=== PATIENT | male | born 1945 | race Caucasian/White ===

== ENCOUNTER → 2016-03-21 | Outpatient (CLI) | payer OTHER | END | disposition home or self-care (01) | LOC: PCVCIMAG 08:58 | PROVIDERS: ATTEND Internal Medicine | DX: I25.10 Atherosclerotic heart disease of native coronary artery without angina pectoris (principal); I65.23 Occlusion and stenosis of bilateral carotid arteries; E78.00 Pure hypercholesterolemia, unspecified; I10 Essential (primary) hypertension; E11.9 Type 2 diabetes mellitus without complications; J44.9 Chronic obstructive pulmonary disease, unspecified; M06.9 Rheumatoid arthritis, unspecified; F17.200 Nicotine dependence, unspecified, uncomplicated | CPT/HCPCS: 80061; 93005; 93880; G0463 ==

== ENCOUNTER → 2016-09-21 | Outpatient (CLI) | payer OTHER | END | disposition home or self-care (01) | LOC: PCVCCLINIC 11:50 | PROVIDERS: ATTEND Internal Medicine | DX: I45.10 Unspecified right bundle-branch block (principal); I25.10 Atherosclerotic heart disease of native coronary artery without angina pectoris; I10 Essential (primary) hypertension; E78.5 Hyperlipidemia, unspecified; M06.9 Rheumatoid arthritis, unspecified; I65.23 Occlusion and stenosis of bilateral carotid arteries; J43.2 Centrilobular emphysema; E11.9 Type 2 diabetes mellitus without complications; Z87.891 Personal history of nicotine dependence; Z96.652 Presence of left artificial knee joint; Z79.82 Long term (current) use of aspirin; Z79.84 Long term (current) use of oral hypoglycemic drugs; Z88.0 Allergy status to penicillin | CPT/HCPCS: 80061; 93005; G0463 ==

== ENCOUNTER → 2016-11-13 | Outpatient (CLI) | payer OTHER | END | disposition home or self-care (01) | LOC: PCVCCLINIC 11:05 | PROVIDERS: ATTEND Internal Medicine | DX: I25.10 Atherosclerotic heart disease of native coronary artery without angina pectoris (principal); I48.0 Paroxysmal atrial fibrillation; I10 Essential (primary) hypertension; I65.23 Occlusion and stenosis of bilateral carotid arteries; M06.9 Rheumatoid arthritis, unspecified; J43.1 Panlobular emphysema; R94.31 Abnormal electrocardiogram [ECG] [EKG]; I45.10 Unspecified right bundle-branch block; E78.00 Pure hypercholesterolemia, unspecified; F17.210 Nicotine dependence, cigarettes, uncomplicated; Z79.82 Long term (current) use of aspirin; Z79.899 Other long term (current) drug therapy | CPT/HCPCS: 93005; G0463 ==

== ENCOUNTER → 2017-03-26 | Outpatient (CLI) | payer OTHER | END | disposition home or self-care (01) | LOC: PCVCIMAG 11:01 | DX: I65.23 Occlusion and stenosis of bilateral carotid arteries (principal); I25.10 Atherosclerotic heart disease of native coronary artery without angina pectoris; I48.0 Paroxysmal atrial fibrillation; I10 Essential (primary) hypertension; E78.00 Pure hypercholesterolemia, unspecified; J43.1 Panlobular emphysema; M06.9 Rheumatoid arthritis, unspecified; F17.210 Nicotine dependence, cigarettes, uncomplicated; I45.10 Unspecified right bundle-branch block; R94.31 Abnormal electrocardiogram [ECG] [EKG]; Z79.899 Other long term (current) drug therapy; Z79.82 Long term (current) use of aspirin | CPT/HCPCS: 80061; 93005; 93880; G0463 ==

== ENCOUNTER → 2017-06-20 | Outpatient (CLI) | payer OTHER | END | disposition home or self-care (01) | LOC: PCVCIMAG 10:54 | DX: I73.9 Peripheral vascular disease, unspecified (principal); I77.1 Stricture of artery; L97.329 Non-pressure chronic ulcer of left ankle with unspecified severity; L97.229 Non-pressure chronic ulcer of left calf with unspecified severity | CPT/HCPCS: 93925 ==

== ENCOUNTER → 2017-09-24 | Outpatient (CLI) | payer OTHER | END | disposition home or self-care (01) | LOC: PCVCCLINIC 11:24 | DX: I25.10 Atherosclerotic heart disease of native coronary artery without angina pectoris (principal); I48.0 Paroxysmal atrial fibrillation; I65.23 Occlusion and stenosis of bilateral carotid arteries; I10 Essential (primary) hypertension; E78.00 Pure hypercholesterolemia, unspecified; J43.1 Panlobular emphysema; M06.9 Rheumatoid arthritis, unspecified; F17.210 Nicotine dependence, cigarettes, uncomplicated; Z88.0 Allergy status to penicillin; Z79.899 Other long term (current) drug therapy | CPT/HCPCS: 93005; G0463 ==

== ENCOUNTER → 2018-03-26 | Outpatient (CLI) | payer OTHER ==
--- NOTE | 2018-03-26 11:40 | PCVCIMAG ---
APPROVED REPORT Indications Stenosis Current Smoker Risk Factors Diabetes Doppler Spectral Velocity Analysis PSV / EDVPSV / EDV ECA (R) 54 / 6 cm/sECA (L) 83 / 16 cm/s dICA (R) 88 / 27 cm/sdICA (L) 71 / 26 cm/s Yumiko (R) 114 / 32 cm/smICA (L) 85 / 25 cm/s pICA (R) 90 / 27 cm/spICA (L) 89 / 28 cm/s Bulb (R) 73 / 14 cm/sBulb (L) 84 / 18 cm/s dCCA (R) 56 / 11 cm/sdCCA (L) 80 / 20 cm/s mCCA (R) 60 / 12 cm/smCCA (L) 88 / 22 cm/s Vert (R) 75 / 16 cm/sVert (L) 93 / 27 cm/s ICA/CCA 2.04ICA/CCA 1.11 Basic Measurements Blood Pressure: Pulses: Right Left RightLeft Brachial(Sitting) 124/92tbGr003/74mmHgTemporal Real Time B-Mode Imaging Vert. (R)AntegradeVert. (L)Antegrade Findings The right carotid bulb has moderate calcified plaque. The right proximal internal carotid artery shows 40-50% stenosis. The right common carotid artery shows no significant stenosis. The right external carotid artery shows no significant stenosis. The left carotid bulb has moderate calcified plaque. The left proximal internal carotid artery shows <40% stenosis. The left common carotid artery shows no significant stenosis. The left external carotid artery shows no significant stenosis. Conclusion 1. Right internal carotid artery stenosis (40-50%) 2. Left internal carotid artery stenosis (<40%) 3. Antegrade vertebral flow
--- NOTE | 2018-03-26 11:43 | PCVCIMAG ---
APPROVED REPORT Study performed: 03/26/2018 11:04:36 EXAM: Comprehensive 2D, Doppler, and color-flow Echocardiogram Patient Location: Echo lab Status: routine BSA: 2.08 HR: 75 bpmBP: 130/74 mmHg Rhythm: RBBB Other Information Study Quality: Adequate Risk Factors: Cardiac Risk Factors: HTN Indications CAD parox a fib 2D Dimensions IVSd: 12.44 (7-11mm) LVDd: 43.67 mm PWd: 12.22 (7-11mm)Ascending Ao: 34.35 (22-36mm) LVDs: 36.80 (25-40mm) Left Atrium: 32.35 (27-40mm) Aortic Root: 35.44 mm LV Single Plane 4CH: 52.46 % LV Single Plane 2CH: 56.95 % Biplane EF: 55.5 % Volumes Left Atrial Volume (Systole) Single Plane 4CH: 51.20 mLSingle Plane 2CH: 56.55 mL LA ESV Index: 30.00 mL/m2 Aortic Valve AoV Peak Brian.: 0.84 m/s AO Peak Gr.: 2.91 mmHgLVOT Max P.06 mmHg LVOT Max V: 0.72 m/s Mitral Valve E/A Ratio: 0.8 MV Decel. Time: 277.47 ms MV E Max Brian.: 0.50 m/s MV A Brian.: 0.62 m/s MV PHT: 80.46 ms IVRT: 128.03 ms Pulmonary Vein P Vein S: 0.20 m/sP Vein A: 0.29 m/s P Vein D: 0.27 m/sP Vein A Dur.: 114.2 msec P Vein S/D Ratio: 0.74 Tricuspid Valve TR Peak Brian.: 2.09 m/s TR Peak Gr.: 17.44 mmHg TV Vmax: 0.49 m/s Left Ventricle The left ventricle is normal size. There is normal LV segmental wall motion. Mild concentric left ventricular hypertrophy. Left ventricular systolic function is normal. The left ventricular ejection fraction is within the normal range. LVEF is 55%. Grade I - abnormal relaxation pattern. Right Ventricle The right ventricle is normal size. The right ventricular systolic function is normal. Atria The left atrium size is normal. The right atrium size is normal. Aortic Valve The aortic valve is mildly calcified. No aortic regurgitation is present. There is no aortic valvular stenosis. Mitral Valve The mitral valve is normal in structure. No mitral regurgitation. No evidence of mitral valve stenosis. Tricuspid Valve The tricuspid valve is normal in structure. Trace tricuspid regurgitation with PAP of 24 mmHg. Pulmonic Valve The pulmonary valve is normal in structure. There is no pulmonic valvular regurgitation. Great Vessels The aortic root is normal in size. IVC is normal in size and collapses >50% with inspiration. Pericardium There is no pericardial effusion. There is no pleural effusion. <Conclusion> Left ventricular systolic function is normal. There is normal LV segmental wall motion. LVEF is 55%. Mild diastolic dysfunction The aortic valve is mildly calcified. No aortic regurgitation or stenosis The mitral valve is normal in structure. No mitral regurgitation. Trace tricuspid regurgitation with pulmonary artery pressure of 24 mmHg. There is no pericardial effusion.
== END | disposition home or self-care (01) ==
LOC: PCVCIMAG 11:57
PROVIDERS: ATTEND Internal Medicine
DX: I65.23 Occlusion and stenosis of bilateral carotid arteries (principal); I48.0 Paroxysmal atrial fibrillation; J43.1 Panlobular emphysema; I10 Essential (primary) hypertension; M06.9 Rheumatoid arthritis, unspecified; M47.812 Spondylosis without myelopathy or radiculopathy, cervical region; E78.00 Pure hypercholesterolemia, unspecified
CPT/HCPCS: 93306; 93880

== ENCOUNTER → 2018-04-15 | Outpatient (CLI) | payer OTHER ==
[~2018-04-15] MED LIST: REGADENOSON 0.4 MG/5 ML DISP.SYRIN. IV ONE
--- NOTE | 2018-04-15 16:15 | PCVCIMAG ---
APPROVED REPORT Imaging Protocol: Rest Tc-99m/Stress Tc-99m 1 day Study performed: 04/15/2018 10:18:57 Indication: CAD , Chest pain Patient Location: Out-Patient Stress Nurse: Tiffanie De Leon RN, Suzanne García RN [place] Tech:JESSICA FarnsworthMT Ht: 6 ft 1 in Wt: 185 lbs BSA: 2.08 m2 HR: 76 bpm BP: 135/63 mmHg BMI: 24.4 Rhythm: Sinus Rhythm, RBBB Medical History Medical History: HTN, Hyperlipidemia, CVD, Diabetes, COPD, Atrial Fibrillation, Current Smoker Medications: Sotalol, ASA, Albuterol, Plaquenil, Pravastatin, Tramadolol, Metformin, Prednisone Allergies: PCN Cardiac Risk Factors: Age Previous Cardiac Procedures: 2003 PCI - STENT TAXUS TO RCA, 2012 STENT TO PDA Pretest Chest Pain Characteristics: No chest pain Exercise History: Sedentary Resting Data Rest SPECT myocardial perfusion imaging was performed in supine position 45 minutes following the intravenous injection of 10.3 mCi of Tc-99m Sestamibi. Time of rest injection: 0945 Administration Route: IV Administration Site: Right Arm Pharmacologic Stress Pharmacologic stress test was performed by injecting Regadenoson 0.4 mg IV push over 10-15 seconds immediately followed by the intravenous injection of 31.7 mCi of Tc-99m Sestamibi. Time of stress injection: 1100 Date: 04/15/2018 Administration Route: IV Administration Site: Right Arm Gated Stress SPECT was performed 45 minutes after stress injection. The images were gated to evaluate regional wall motion and calculate left ventricular ejection fraction. Stress Test Details Stress Test: Pharmacologic stress testing performed using 0.4 mg of regadenoson per 5 mL given IV over 10 seconds. Reason for pharmacologic stress test: spinal stenosis. HRMax Heart Rate (APMHR): 146 bpm Resting HR: 76 bpmTarget HR (85% APMHR): 124 bpm Max HR Achieved: 89 bpm % of APMHR: 60 Recovery HR: 85 bpm BP Resting BP: 135/63 mmHg Max BP: 207/77 mmHg Recovery BP: 125/60 mmHg ECG Resting ECG: Sinus Rhythm, RBBB Stress ECG: Sinus Rhythm, RBBB ST Change: None Maximum ST Deviation: 0 mm Arrhythmia: None Recovery ECG: Sinus Rhythm, RBBB Recovery ST Change: None Recovery ST Deviation: 0 mm Recovery Arrhythmia: None Clinical Reason for Termination: Completed protocol Stress Symptoms: Abdominal discomfort Exercise duration: 0 min 55 sec Symptoms resolved with caffeine. Stress ECG Conclusion ECG: Non-ischemic Clinical: Non-ischemic Study Quality Study: Good Study Data Post stress, the left ventricular ejection was 58%.. SSS: 0 SRS: 0 SDS: 0 TID = 0.98. Perfusion No evidence of stress induced ischemia or prior myocardial infarction. Wall Motion Normal left ventricular size and function with no regional wall motion abnormalities. Nuclear Conclusion No evidence of stress induced ischemia or prior myocardial infarction. Normal left ventricular size and function with no regional wall motion abnormalities. Post stress, the left ventricular ejection was 58%. No prior study available for comparison. Interpreted by: Buddy Malone MD Electronically Approved: 04/15/2018 16:10:25 <Conclusion> ECG: Non-ischemic Clinical: Non-ischemic
== END | disposition home or self-care (01) ==
LOC: PCVCIMAG 09:33
PROVIDERS: ATTEND Internal Medicine
DX: I25.10 Atherosclerotic heart disease of native coronary artery without angina pectoris (principal); I10 Essential (primary) hypertension; E78.5 Hyperlipidemia, unspecified; E11.9 Type 2 diabetes mellitus without complications; J44.9 Chronic obstructive pulmonary disease, unspecified; I48.0 Paroxysmal atrial fibrillation; F17.200 Nicotine dependence, unspecified, uncomplicated
CPT/HCPCS: 78452; 93017; A9500; J2785

== ENCOUNTER → 2018-10-16 | Outpatient (CLI) | payer OTHER | END | disposition home or self-care (01) | LOC: PCVCCLINIC 11:00 | PROVIDERS: ATTEND Internal Medicine | DX: I25.10 Atherosclerotic heart disease of native coronary artery without angina pectoris (principal); I48.0 Paroxysmal atrial fibrillation; I65.23 Occlusion and stenosis of bilateral carotid arteries; I10 Essential (primary) hypertension; E78.5 Hyperlipidemia, unspecified; I81 Portal vein thrombosis; J43.1 Panlobular emphysema; M06.9 Rheumatoid arthritis, unspecified; Z87.891 Personal history of nicotine dependence; Z88.0 Allergy status to penicillin | CPT/HCPCS: 36415; 80061; 93005; G0463 ==